=== PATIENT | female | born 1945 | race Caucasian/White ===

== ENCOUNTER 2016-07-06 13:39 | Emergency (ER) | payer MEDICARE ==
[~2016-07-06] VITALS: Ht 172.7 cm; Wt 75.0 kg
[~2016-07-06 13:39] MED LIST: ASPI81 PO; B COTAB3 PO; CALC600T34 PO; CALC625 PO; CHROMIUM; COQ10; ESTR.3 PO; FISH1000 PO; GINKGO BILOBA; GLUC500C56 PO; LORT5TAB PO; METF-324 PO; METO50TA PO; SELENIUM; SIMV20 PO; TAB-TAB PO
[2016-07-06 13:50] VITALS: BP 160/83; PULSE 62; RESP 16; TEMP 98.6; O2SAT 98
[2016-07-06] MEDS ORDERED: LOSA25TA PO (14:06)
[2016-07-06] MEDS ORDERED: SIMV40TA PO (14:06)
[2016-07-06] MEDS ORDERED: AMLO2.5T PO (14:06)
[2016-07-06] MEDS ORDERED: HYDR12.57 PO (14:06)
[2016-07-06] MEDS ORDERED: METF1000 PO (14:06)
[2016-07-06] MEDS ORDERED: METO25TA3 PO (14:06)
--- NOTE | 2016-07-06 14:12 | PD ---
HPI Chief Complaint: Fall Time Seen by Provider: 13:55 Travel History International Travel<30 days: No Contact w/Intl Traveler<30days: No Traveled to known affect area: No History of Present Illness HPI The patient is a 70-year-old female who presents to the emergency department after a fall. The patient states she was cleaning tile, which she slipped on a wet spot, fell backwards. The patient states she struck the posterior aspect of her head on the tile and had a loss of consciousness, undetermined timeframe. The patient also complained of some left wrist pain. The patient states initially there was some bleeding from the posterior aspect of the head which resolved with direct pressure. The patient does complain of a mild headache and dizziness after the fall. The patient denies any company neck pain, chest pain, shortness of breath, palpitations, nausea, vomiting, or abdominal pain. The patient denies any focal deficits. She does complain of wrist pain mostly over the radial aspect of the left wrist. She denies any numbness or tingling of the upper or lower extremities. The patient cannot recall her last tetanus shot. The patient denies taking any anticoagulants or antiplatelet medications. PFSH Past Medical History Hx Anticoagulant Therapy: No Cancer: No High Cholesterol: Yes Diabetes: Yes Glaucoma: No Hepatitis: No Hiatal Hernia: No Hypertension: Yes Thyroid Disease: No Menopausal: Yes Dilation and Curettage (D&C): Yes Past Surgical History Abdominal Surgery: No Cardiac Surgery: No Ear Surgery: No Endocrine Surgery: No Eye Surgery: No Genitourinary Surgery: No Gynecologic Surgery: No Oral Surgery: Yes (TONSILLECTOMY, ALL 4 WISDOM TEETH REMOVED) Pacemaker: No Thoracic Surgery: No Tonsillectomy: Yes Social History Alcohol Use: Yes (OCC) Tobacco Use: No Substance Use: No Allergies-Medications (Allergen,Severity, Reaction): Coded Allergies: No Known Allergies (Verified , 07/06/16) Reported Meds & Prescriptions Reported Meds & Active Scripts Active Reported Amlodipine (Amlodipine Besylate) 2.5 Mg Tab 2.5 Mg PO DAILY Simvastatin 40 Mg Tab 40 Mg PO HS Losartan (Losartan Potassium) 25 Mg Tab 12.5 Mg PO DAILY Hydrochlorothiazide 12.5 Mg Cap 12.5 Mg PO DAILY Metoprolol Tartrate 25 Mg Tab 25 Mg PO BID Metformin (Metformin HCl) 1,000 Mg Tab 1,000 Mg PO BIDPC With meals Review of Systems Except as stated in HPI: all other systems reviewed are Neg Eyes: No: Blurred Vision HENT: Positive: Headaches, Lightheadedness, No: Neck Stiffness, Neck Pain Cardiovascular: No: Chest Pain or Discomfort, Palpitations, Syncope Respiratory: No: Shortness of Breath Gastrointestinal: No: Nausea, Vomiting, Abdominal Pain Musculoskeletal: Positive: Pain Neurologic: Positive: Dizziness, Headache, No: Focal Abnormalities, Change in Mentation, Slurred Speech, Paresthesia, Sensory Disturbance Physical Exam Narrative GENERAL: Awake, alert, pleasant 70-year-old female who appears her stated age and is in no acute respiratory distress. SKIN: Focused skin assessment warm/dry. 8 cm laceration over the occipital area slightly jagged but no active bleeding. The laceration was stellate with multiple areas in the center. HEAD: 8 cm laceration of occipital area that is slightly jagged with no active bleeding. EYES: Pupils equal and round. Patient is wearing glasses. Pupils are 3 mm bilateral and reactive. EOMs are intact.. ENT: No nasal bleeding or discharge. Mucous membranes pink and moist. NECK: Trachea midline. No JVD. No tenderness of the cervical vertebrae. Patient has full range of motion with flexion, extension, and rotation. CARDIOVASCULAR: Regular rate and rhythm. No murmur appreciated. RESPIRATORY: No accessory muscle use. Clear to auscultation. Breath sounds equal bilaterally. GASTROINTESTINAL: Abdomen soft, non-tender, nondistended. No rebound tenderness. MUSCULOSKELETAL: Mild tenderness over the distal radius. Patient is able fully abduct and adduct at the left shoulder as well as extend the left upper extremity above her head. Patient is able fully flex and extend left elbow as well as supinate and pronate the left forearm. Mild tenderness over the distal third of the radius exacerbated with flexion and extension. Intrinsic hand muscles are intact. Positive left radial pulse. NEUROLOGICAL: Awake and alert. No obvious cranial nerve deficits. Motor grossly within normal limits. Normal speech. Nonfocal. Oriented 4. Follows commands without difficulty. PSYCHIATRIC: Appropriate mood and affect; insight and judgment normal. Data Data Last Documented VS Vital Signs Date Time Temp Pulse Resp B/P Pulse Ox O2 Delivery O2 Flow Rate FiO2 07/06/16 14:31 64 18 98 Room Air 07/06/16 13:50 98.6 160/[address] Brain W/O Iv Contrast(Rout) (07/06/16 ) Wrist, Limited (Ap&Lat) (07/06/16 ) Tetanus/Diphtheria Tox Adult (Tetanus/Di (07/06/16 14:15) Acetamin-Hydrocod 325-5 Mg ([place] 5-325 (07/06/16 14:15) Lidocai-Epi 1%-1:100,000 Inj (Xylocaine- (07/06/16 14:15) MDM Medical Decision Making Medical Screen Exam Complete: Yes Emergency Medical Condition: Yes Medical Record Reviewed: Yes Interpretation(s) X-ray of the left wrist reveals under mineralized bones. No fracture or acute finding is identified. CT of the brain reveals normal examination Differential Diagnosis Differential diagnosis includes closed head injury, mechanical fall, skull fracture, intracranial hemorrhage, subdural hemorrhage, wrist fracture, wrist contusion, wrist sprain, laceration, abrasion. Narrative Course CT the brain was obtained. X-ray of the left wrist was obtained. The patient' s tetanus shot was updated and the patient was administered [place] 5 mg/325 mg orally for pain. The patient's laceration was draped and prepped in normal sterile fashion, anesthetized 1% lidocaine with epinephrine using a 27-gauge needle, and stapled in a single layer fashion, with a few single interrupted sutures using 4-0 nylon were the laceration was stellate in the middle. X-ray of the left wrist was unremarkable, no acute fracture. CT of the brain reveals a normal examination. Procedures Procedure Narrative LACERATION LOCATION: Occipital scalp LENGTH: 8 cm NUMBER OF STITCHES/COLIN: 8 colin, 3 sutures REPAIR: The area of the laceration was prepped with Betadine and sterilely draped. The laceration was infiltrated with 1% lidocaine with epinephrine. The wound was copiously irrigated and explored without evidence of foreign body , tendon injury or neurovascular injury. The wound was closed using colin and single interrupted 4-0 nylon sutures. This was a single layer repair. A sterile dressing was applied. The patient was advised to keep the dressing clean and dry. Patient tolerated the procedure well. Diagnosis Primary Impression: Closed head injury Qualified Code: S09.90XA - Closed head injury, initial encounter Additional Impressions: Left wrist pain Laceration of scalp Qualified Code: S01.01XA - Laceration of scalp, initial encounter Patient Instructions: General Instructions Additional Instructions: Velcro wrist splint as needed. Polysporin to the scalp. Suture removal/staple removal in 7 days. Monitor for signs of infection. Ice packs occipital region for the next 24 hours. Tylenol and/or Motrin as needed for pain. Med/Other Pt SpecificInfo: No Change to Meds Disposition: 01 DISCHARGE HOME Condition: Stable Mejia Fiore MD Jul 06, 2016 14:12
[2016-07-06] MEDS ORDERED: LIDOCAINE 1%/EPINEPHrine 1:100,000 SOLN 20 ML VIAL INFIL ONE (14:15)
[2016-07-06] MEDS ORDERED: ACETAMINOPHEN/HYDROcodone 325 MG/5 MG TAB PO ONE (14:15)
[2016-07-06] MEDS ORDERED: TETANUS/DIPHTHERIA TOXOID ADULT 0.5 ML VIAL IM ONE (14:15)
--- NOTE | 2016-07-06 14:19 | RADHPO ---
EXAM DATE/TIME: 07/06/2016 14:07 [facility] COMPARISON: No previous studies available for comparison. INDICATIONS : Left wrist pain post fall. MEDICAL HISTORY : Hypercholesterolemia. Hypertension Diabetic. SURGICAL HISTORY : Tonsillectomy. D&C. ENCOUNTER: Initial ACUITY: 1 day PAIN SCORE: 7/10 LOCATION: Left wrist FINDINGS: Three views of the left wrist demonstrate no fracture or dislocation. Mineralization is decreased. Th ere is no significant arthropathy. No soft tissue abnormality or radiopaque foreign body is identifie d. CONCLUSION: Undermineralized bones. No fracture or acute finding is identified. Nam Spann MD on July 06, 2016 at 14:16 Board Certified Radiologist. This report was verified electronically.
[2016-07-06 14:31] VITALS: PULSE 64; RESP 18; O2SAT 98
--- NOTE | 2016-07-06 14:31 | RADHPO ---
EXAM DATE/TIME: 07/06/2016 14:10 [facility] COMPARISON: No previous studies available for comparison. INDICATIONS : Fall with laceration to head RADIATION DOSE: 63.71 CTDIvol (mGy) MEDICAL HISTORY : Hypertension. Diabetes SURGICAL HISTORY : ENCOUNTER: Initial ACUITY: 1 day PAIN SCALE: 4/10 LOCATION: cranial posterior TECHNIQUE: Multiple contiguous axial images were obtained of the head. Using automated exposure control and adj ustment of the mA and/or kV according to patient size, radiation dose was kept as low as reasonably a chievable to obtain optimal diagnostic quality images. FINDINGS: CEREBRUM: The ventricles are normal for age. No evidence of midline shift, mass lesion, hemorrhage or acute in farction. No extra-axial fluid collections are seen. POSTERIOR FOSSA: The cerebellum and brainstem are intact. The 4th ventricle is midline. The cerebellopontine angle i s unremarkable. EXTRACRANIAL: The visualized portion of the orbits is intact. SKULL: The calvaria is intact. No evidence of skull fracture. CONCLUSION: Normal examination. Willian Jara MD on July 06, 2016 at 14:29 Board Certified Radiologist. This report was verified electronically.
[2016-07-06 15:45] VITALS: BP 128/74
== END 2016-07-06 15:46 | disposition home or self-care (01) ==
LOC: PHED 13:39
DX: S01.01XA Laceration without foreign body of scalp, initial encounter (principal); M25.532 Pain in left wrist; E78.00 Pure hypercholesterolemia, unspecified; E11.9 Type 2 diabetes mellitus without complications; I10 Essential (primary) hypertension; Z23 Encounter for immunization; W01.0XXA Fall on same level from slipping, tripping and stumbling without subsequent striking against object, initial encounter; Y93.E5 Activity, floor mopping and cleaning; Y92.009 Unspecified place in unspecified non-institutional (private) residence as the place of occurrence of the external cause; Y99.8 Other external cause status
CPT/HCPCS: 12004; 70450; 73100; 90471; 90714; 99284; L3908

== ENCOUNTER 2016-07-13 13:19 | Emergency (ER) | payer MEDICARE ==
[~2016-07-13] VITALS: Ht 172.7 cm; Wt 77.0 kg
[~2016-07-13 13:19] MED LIST changes: +AMLO2.5T PO; -ASPI81 PO; -B COTAB3 PO; -CALC600T34 PO; -CALC625 PO; -CHROMIUM; -COQ10; -ESTR.3 PO; -FISH1000 PO; -GINKGO BILOBA; -GLUC500C56 PO; +HYDR12.57 PO; -LORT5TAB PO; +LOSA25TA PO; -METF-324 PO; +METF1000 PO; +METO25TA3 PO; -METO50TA PO; -SELENIUM; -SIMV20 PO; +SIMV40TA PO; -TAB-TAB PO
[2016-07-13 13:40] VITALS: BP 114/58; PULSE 60; RESP 16; TEMP 98.1; O2SAT 98
--- NOTE | 2016-07-13 13:51 | PD ---
HPI Chief Complaint: Wound/Suture/Staple Re-Check Time Seen by Provider: 13:48 Travel History International Travel<30 days: No Contact w/Intl Traveler<30days: No Traveled to known affect area: No History of Present Illness HPI 70-year-old female presents to the emergency department for suture and staple removal. One week ago patient had a fall and sustained a posterior scalp laceration. States that the wound has been healing well. Denies any redness, drainage, fever, chills. Denies any complaints. PFSH Past Medical History Hx Anticoagulant Therapy: No Cancer: No Cardiovascular Problems: Yes (HTN, CHOL) High Cholesterol: Yes Diabetes: Yes Patient Takes Glucophage: Yes Diminished Hearing: No Glaucoma: No Hepatitis: No Hiatal Hernia: No Hypertension: Yes Medical other: No Respiratory: No Thyroid Disease: No Tetanus Vaccination: < 5 Years ?: Not Menopausal: Yes Dilation and Curettage (D&C): Yes Past Surgical History Abdominal Surgery: No Cardiac Surgery: No Ear Surgery: No Endocrine Surgery: No Eye Surgery: No Genitourinary Surgery: No Gynecologic Surgery: No Neurologic Surgery: No Oral Surgery: Yes (TONSILLECTOMY, ALL 4 WISDOM TEETH REMOVED) Pacemaker: No Thoracic Surgery: No Tonsillectomy: Yes Other Surgery: Yes Social History Alcohol Use: Yes (OCC) Tobacco Use: No Substance Use: No Allergies-Medications (Allergen,Severity, Reaction): Coded Allergies: No Known Allergies (Verified , 07/13/16) Reported Meds & Prescriptions Reported Meds & Active Scripts Active Reported Amlodipine (Amlodipine Besylate) 2.5 Mg Tab 2.5 Mg PO DAILY Simvastatin 40 Mg Tab 40 Mg PO HS Losartan (Losartan Potassium) 25 Mg Tab 12.5 Mg PO DAILY Hydrochlorothiazide 12.5 Mg Cap 12.5 Mg PO DAILY Metoprolol Tartrate 25 Mg Tab 25 Mg PO BID Metformin (Metformin HCl) 1,000 Mg Tab 1,000 Mg PO BIDPC With meals Review of Systems Except as stated in HPI: all other systems reviewed are Neg Physical Exam Narrative GENERAL: Well-nourished and well-developed pleasant patient in no acute distress who is nontoxic appearing. SKIN: Warm and dry. Posterior scalp laceration well healed with sutures and colin in place. No erythema, warmth, discharge or drainage. NEUROLOGICAL: Awake, alert, and oriented. Normal speech and gait. Cranial nerves are grossly intact. Data Data Last Documented VS Vital Signs Date Time Temp Pulse Resp B/P Pulse Ox O2 Delivery O2 Flow Rate FiO2 07/13/16 13:40 98.1 60 16 114/58 98 MDM Medical Decision Making Medical Screen Exam Complete: Yes Emergency Medical Condition: Yes Differential Diagnosis Suture removal versus stable removal versus wound recheck Narrative Course 70-year-old female presents to the emergency department for suture and staple removal. Patient is afebrile, vital signs are stable. I cleaned the area with alcohol prep and successfully removed 8 colin and 3 sutures. Patient tolerated well. Discussed proper wound care techniques. Advised follow-up with her PCP. Patient verbalizes understanding and agreement with treatment plan. Diagnosis Primary Impression: Encounter for removal of sutures Additional Impression: Removal of colin Patient Instructions: Acute Wound Care (ED), General Instructions Additional Instructions: Follow-up with your Primary Care Physician. Return to the ED for any acute worsening of symptoms. Med/Other Pt SpecificInfo: No Change to Meds Disposition: 01 DISCHARGE HOME Condition: Stable Fiordaliza Christopher Jul 13, 2016 13:51
== END 2016-07-13 14:04 | disposition home or self-care (01) ==
LOC: PHEFT 13:19
DX: S01.01XD Laceration without foreign body of scalp, subsequent encounter (principal); Z48.02 Encounter for removal of sutures; W19.XXXD Unspecified fall, subsequent encounter
CPT/HCPCS: 99281